=== PATIENT | male | born 1945 | race Caucasian/White ===

== ENCOUNTER 2023-02-23 14:56 | Observation (INO) | payer OTHER, SELFPAY ==
[~2023-02-23] VITALS: Ht 180.3 cm; Wt 85.1 kg
[2023-02-23 16:50] VITALS: BP 179/70; TEMP 97.7; O2SAT 98
[2023-02-23] MEDS ORDERED: MAALOX 30 ML SUSP *UDC PO PRN (17:15)
[2023-02-23] MEDS ORDERED: MOM 30ML SUSPENSION UDC PO PRN (17:15)
[2023-02-23] MEDS ORDERED: ACETAMINOPHEN TAB 650MG DOSE (2X325MG) PO PRN (17:15)
[2023-02-23 17:52] LABS: BASO % 0.5 % (0.0-1.0); EOS # 0.1 10^3/uL (0.0-0.5); EOS % 1.4 % (0.0-3.0); HEMATOCRIT 32.5 % (42.0-52.0); HEMOGLOBIN 9.6 g/dl (13.5-17.5); LYMPH # 1.4 10^3/uL (1.5-5.0); LYMPH % 21.2 % (24.0-44.0); MEAN CORPUSCULAR HEMOGLOBIN 22.1 pg (27.0-33.0); MEAN CORPUSCULAR HGB CONC 29.5 g/dl (32.0-36.5); MEAN CORPUSCULAR VOLUME 74.7 fl (80.0-96.0); MONO # 0.7 10^3/uL (0.0-0.8); MONO % 10.4 % (2.0-8.0); NEUTROPHILS # 4.4 10^3/uL (1.5-8.5); NEUTROPHILS % 66.2 % (36.0-66.0); PLATELET COUNT, AUTOMATED 201 10^3/uL (150-450); RED BLOOD COUNT 4.35 10^6/uL (4.30-6.10); WHITE BLOOD COUNT 6.7 10^3/uL (4.0-10.0)
[2023-02-23] MEDS ORDERED: ALBUTEROL SULFATE 2.5MG/0.5ML INH NEB SOLN NEB PRN ×2 (18:00)
[2023-02-23] MEDS ORDERED: ROSU20TA61 PO (18:12)
[2023-02-23] MEDS ORDERED: METO1TAB7 PO (18:12)
[2023-02-23] MEDS ORDERED: AMIO200T37 PO (18:12)
[2023-02-23] MEDS ORDERED: FERR325T3 PO (18:12)
[2023-02-23] MEDS ORDERED: TAMS1CAP17 PO (18:12)
[2023-02-23] MEDS ORDERED: THERTAB68 PO (18:12)
[2023-02-23] MEDS ORDERED: ALBU8.5H INH (18:12)
[2023-02-23] MEDS ORDERED: CLOP75TA2 PO (18:12)
[2023-02-23] MEDS ORDERED: DILT30TA PO (18:12)
[2023-02-23] MEDS ORDERED: ELIQ5TAB PO (18:12)
[2023-02-23] MEDS ORDERED: LISI5TAB11 PO (18:12)
[2023-02-23] MEDS ORDERED: HOME MED LIST COMPLETE! XX SCH (18:15)
[2023-02-23 18:17] LABS: BLOOD UREA NITROGEN 32 MG/DL (9-23); CALCIUM LEVEL 8.5 MG/DL (8.3-10.6); CARBON DIOXIDE LEVEL 27 MMOL/L (20-31); CHLORIDE LEVEL 111 MMOL/L (98-107); CREATININE FOR GFR 1.33 MG/DL (0.70-1.30); GLOMERULAR FILTRATION RATE 55.5 (>42); GLUCOSE, FASTING 94 MG/DL (74-106); IRON (FE) 13 UG/DL (65-175); MAGNESIUM LEVEL 2.3 MG/DL (1.8-2.4); PERCENT SATURATION 5.7 % (19.7-50.0); POTASSIUM SERUM 5.3 MMOL/L (3.5-5.1); SODIUM LEVEL 146 MMOL/L (136-145); TOTAL IRON BINDING CAPACITY 228 UG/DL (250-425)
[2023-02-23 18:21] LABS: FERRITIN 218.7 NG/ML (10.5-307.3)
[2023-02-23 18:22] LABS: FOLATE > 24.0 NG/ML (>5.4); VITAMIN B12 LEVEL 784 PG/ML (211-911)
[2023-02-23] MEDS ORDERED: SOD POLYSTYRENE SULFONATE SUSP 15GM 60ML UD PO ONE (18:45)
[2023-02-23] MEDS: NS 1,000 ML IV SCH (19:02)
[2023-02-23 19:14] VITALS: BP 149/86; TEMP 97.4; O2SAT 98
[2023-02-23] MEDS: ALBUTEROL SULFATE 2.5MG/0.5ML INH NEB SOLN NEB SCH (19:23)
[2023-02-23 19:33] LABS: INR 1.83; PROTHROMBIN TIME 20.7 SECONDS (12.5-14.5)
[2023-02-23 19:34] LABS: PARTIAL THROMBOPLASTIN TIME 36.1 SECONDS (24.8-34.2)
[2023-02-23] MEDS: FERROUS SULFATE 325MG TAB PO SCH (20:46)
[2023-02-23] MEDS: TAMSULOSIN 0.4 MG CAP PO SCH (20:46)
[2023-02-23] MEDS: DOCUSATE SODIUM 100MG CAPSULE PO SCH (20:47)
[2023-02-23] MEDS ORDERED: LIDOCAINE 2% JELLY 6ML SYRINGE TOP PRN (23:05)
[2023-02-23 23:15] VITALS: BP 153/66; TEMP 97.6; O2SAT 93
[2023-02-23] MEDS ORDERED: RAMELTEON 8 MG TAB (ROZEREM) PO ONE (23:15)
[2023-02-24] VITALS (14 sets, daily range): BP systolic 116–160; BP diastolic 55–88; TEMP 96.7–97.9; O2SAT 90–99
[2023-02-24 06:18] LABS: BASO % 0.4 % (0.0-1.0); EOS # 0.1 10^3/uL (0.0-0.5); EOS % 1.8 % (0.0-3.0); HEMATOCRIT 28.9 % (42.0-52.0); HEMOGLOBIN 8.5 g/dl (13.5-17.5); LYMPH % 20.2 % (24.0-44.0); MEAN CORPUSCULAR HEMOGLOBIN 22.4 pg (27.0-33.0); MEAN CORPUSCULAR HGB CONC 29.4 g/dl (32.0-36.5); MEAN CORPUSCULAR VOLUME 76.1 fl (80.0-96.0); MONO # 0.6 10^3/uL (0.0-0.8); MONO % 11.1 % (2.0-8.0); NEUTROPHILS # 3.3 10^3/uL (1.5-8.5); NEUTROPHILS % 66.3 % (36.0-66.0); PLATELET COUNT, AUTOMATED 174 10^3/uL (150-450); WHITE BLOOD COUNT 4.9 10^3/uL (4.0-10.0)
[2023-02-24 06:52] LABS: BLOOD UREA NITROGEN 28 MG/DL (9-23); CALCIUM LEVEL 7.7 MG/DL (8.3-10.6); CARBON DIOXIDE LEVEL 26 MMOL/L (20-31); CHLORIDE LEVEL 109 MMOL/L (98-107); CREATININE FOR GFR 1.21 MG/DL (0.70-1.30); GLOMERULAR FILTRATION RATE > 60.0 (>42); GLUCOSE, FASTING 87 MG/DL (74-106); MAGNESIUM LEVEL 2.2 MG/DL (1.8-2.4); POTASSIUM SERUM 4.4 MMOL/L (3.5-5.1); SODIUM LEVEL 143 MMOL/L (136-145)
[2023-02-24] MEDS: ALBUTEROL SULFATE 2.5MG/0.5ML INH NEB SOLN NEB SCH ×4 (07:42→19:42)
[2023-02-24] MEDS: dilTIAZem 30 MG TAB PO SCH (09:00)
[2023-02-24] MEDS: METOPROLOL SUCC (TopROL XL) 50MG **XL** TAB PO SCH (09:00)
[2023-02-24] MEDS ORDERED: LIDOCAINE 2% 100MG/5ML SDV (FOR ANES.) As Ordered ONE (09:18)
[2023-02-24] MEDS ORDERED: propofoL 200 MG/20 ML VIAL As Ordered ONE (09:18)
[2023-02-24] MEDS ORDERED: MIDAZOLAM INJ 2MG/2ML VIAL As Ordered ONE (09:18)
[2023-02-24] MEDS ORDERED: fentaNYL 100 MCG/2 ML INJECTION As Ordered ONE (09:19)
[2023-02-24] MEDS ORDERED: LIDOCAINE 2% 5ML JELLY UROJET As Ordered ONE (09:49)
[2023-02-24] MEDS ORDERED: ceFAZolin 1GM VIAL As Ordered ONE (10:51)
[2023-02-24] MEDS ORDERED: ONDANSETRON 4MG 2ML VIAL As Ordered ONE ×2 (11:00→12:19)
[2023-02-24] MEDS ORDERED: LR 1,000 ML IV SCH (11:25)
[2023-02-24] MEDS ORDERED: HYDROMORPHONE HCL 0.5 MG/ 0.5 ML SYRINGE IV PRN (11:25)
[2023-02-24] MEDS ORDERED: fentaNYL 100 MCG/2 ML INJECTION IV PRN (11:25)
[2023-02-24] MEDS ORDERED: oxyCODONE 5MG TAB PO PRN (11:25)
[2023-02-24] MEDS ORDERED: ONDANSETRON 4MG 2ML VIAL IV PRN (11:25)
[2023-02-24] MEDS ORDERED: KETOROLAC 60MG 2ML VIAL As Ordered ONE (12:19)
[2023-02-24] MEDS: FERROUS SULFATE 325MG TAB PO SCH ×2 (12:28→20:21)
[2023-02-24] MEDS: DOCUSATE SODIUM 100MG CAPSULE PO SCH ×2 (12:29→20:21)
[2023-02-24] MEDS: ROSUVASTATIN 10 MG TAB (CRESTOR) PO SCH (12:29)
[2023-02-24] MEDS: MULTIVITAMINS/MINERALS THERAP 1 TAB PO SCH (12:30)
[2023-02-24] MEDS: AMIODARONE 200 MG TAB (PACERONE) PO SCH (12:34)
[2023-02-24 12:39] LABS: HEMATOCRIT 28.1 % (42.0-52.0); HEMOGLOBIN 8.4 g/dl (13.5-17.5)
[2023-02-24] MEDS: NS 1,000 ML IV SCH (12:57)
[2023-02-24] MEDS ORDERED: cefTRIAXone SOD 1GM VIAL IM SCH (15:00)
[2023-02-24] MEDS ORDERED: ceFAZolin SOD 1 GM in D5W MINI-BAG PLUS 50 ML IV SCH (16:00)
[2023-02-24] MEDS: cefTRIAXone SOD 1 GM in D5W MINI-BAG PLUS 50 ML IV SCH (16:44)
[2023-02-24 18:37] LABS: HEMATOCRIT 32.8 % (42.0-52.0); HEMOGLOBIN 9.9 g/dl (13.5-17.5)
[2023-02-24] MEDS: TAMSULOSIN 0.4 MG CAP PO SCH (20:20)
[2023-02-24 20:29] LABS: APPEARANCE, URINE CLOUDY (CLEAR); BACTERIA, URINE AUTO NEGATIVE (NEGATIVE); BILIRUBIN, URINE AUTO NEGATIVE (NEGATIVE); BLOOD, URINE BLOOD 3+ (NEGATIVE); COLOR, URINE AMBER (YELLOW); GLUCOSE, URINE (UA) AUTO NEGATIVE (NEGATIVE); KETONE, URINE AUTO TRACE mg/dL (NEGATIVE); LEUKOCYTE ESTERASE, URINE AUTO 2+ (NEGATIVE); MUCUS, URINE SMALL (NEGATIVE); NITRITE, URINE AUTO NEGATIVE (NEGATIVE); PROTEIN, URINE AUTO 2+ mg/dL (NEGATIVE); RBC, URINE AUTO 72 /HPF (0-3); SPECIFIC GRAVITY URINE AUTO 1.018 (1.002-1.035); SQUAMOUS EPITHELIAL CELL UR AU 0 /HPF (0-6); UROBILINOGEN, URINE AUTO 0.2 mg/dL (0.0-2.0); WBC, URINE AUTO 38 /HPF (0-3)
[2023-02-25 03:00] VITALS: BP 157/67; TEMP 98; O2SAT 98
[2023-02-25 06:29] LABS: HEMATOCRIT 30.4 % (42.0-52.0); HEMOGLOBIN 9.3 g/dl (13.5-17.5); LYMPH # 0.5 10^3/uL (1.5-5.0); LYMPH % 5.5 % (24.0-44.0); MEAN CORPUSCULAR HEMOGLOBIN 23.4 pg (27.0-33.0); MEAN CORPUSCULAR HGB CONC 30.6 g/dl (32.0-36.5); MEAN CORPUSCULAR VOLUME 76.4 fl (80.0-96.0); MONO # 0.5 10^3/uL (0.0-0.8); MONO % 5.4 % (2.0-8.0); NEUTROPHILS # 7.5 10^3/uL (1.5-8.5); NEUTROPHILS % 88.6 % (36.0-66.0); PLATELET COUNT, AUTOMATED 177 10^3/uL (150-450); RED BLOOD COUNT 3.98 10^6/uL (4.30-6.10); WHITE BLOOD COUNT 8.5 10^3/uL (4.0-10.0)
[2023-02-25 06:54] LABS: CALCIUM LEVEL 8.1 MG/DL (8.3-10.6); CREATININE FOR GFR 1.35 MG/DL (0.70-1.30); GLOMERULAR FILTRATION RATE 54.6 (>42); MAGNESIUM LEVEL 2.3 MG/DL (1.8-2.4); POTASSIUM SERUM 4.9 MMOL/L (3.5-5.1)
[2023-02-25 07:55] VITALS: BP 157/70; TEMP 97.5; O2SAT 97
[2023-02-25] MEDS: ALBUTEROL SULFATE 2.5MG/0.5ML INH NEB SOLN NEB SCH ×3 (08:00→16:00)
[2023-02-25] MEDS: MULTIVITAMINS/MINERALS THERAP 1 TAB PO SCH (08:08)
[2023-02-25] MEDS: ROSUVASTATIN 10 MG TAB (CRESTOR) PO SCH (08:08)
[2023-02-25] MEDS: DOCUSATE SODIUM 100MG CAPSULE PO SCH (08:08)
[2023-02-25] MEDS: FERROUS SULFATE 325MG TAB PO SCH (08:08)
[2023-02-25 08:09] VITALS: BP 142/80
[2023-02-25] MEDS: METOPROLOL SUCC (TopROL XL) 50MG **XL** TAB PO SCH (08:09)
[2023-02-25] MEDS: dilTIAZem 30 MG TAB PO SCH (08:09)
[2023-02-25] MEDS: AMIODARONE 200 MG TAB (PACERONE) PO SCH (08:12)
[2023-02-25] MEDS ORDERED: ASPIRIN 81MG ENTERIC TABLET PO SCH (09:00)
[2023-02-25] MEDS ORDERED: METHENAMINE HIPPURATE 1GM TABLET PO SCH (09:00)
[2023-02-25] MEDS ORDERED: ASPI81TAEC PO (11:14)
[2023-02-25] MEDS ORDERED: METH-855 PO (11:14)
[2023-02-25] MEDS ORDERED: ELIQ5TAB PO (11:14)
[2023-02-25] MEDS ORDERED: CEFD300C42 PO (11:14)
[2023-02-25 12:00] VITALS: BP 154/70; TEMP 97.4; O2SAT 98
[2023-02-25 15:17] VITALS: BP 145/64; TEMP 97.4; O2SAT 100
[2023-02-25] MEDS: cefTRIAXone SOD 1 GM in D5W MINI-BAG PLUS 50 ML IV SCH (17:15)
== END 2023-02-25 17:53 | disposition home or self-care (01) ==
LOC: M PCU 16:47
PROVIDERS: ADMIT Internal Medicine; ATTEND Internal Medicine
DX: N30.91 Cystitis, unspecified with hematuria (principal); I10 Essential (primary) hypertension; I48.91 Unspecified atrial fibrillation; E78.5 Hyperlipidemia, unspecified; F17.218 Nicotine dependence, cigarettes, with other nicotine-induced disorders; Z79.01 Long term (current) use of anticoagulants; Z79.02 Long term (current) use of antithrombotics/antiplatelets; Z85.46 Personal history of malignant neoplasm of prostate; J45.909 Unspecified asthma, uncomplicated; Z79.51 Long term (current) use of inhaled steroids; Z79.899 Other long term (current) drug therapy
CPT/HCPCS: 36415; 52001; 52224; 71045; 74176; 80048; 81001; 82607; 82728; 82746; 83550; 83605; 83735; 84466; 85014; 85018; 85025; 85046; 85610; 85730; 86850; 86900; 86901; 86920; 87086; 88305; 93005; 94640; 96361; 96365; 96366; 97116; 97161; G0103; G0378; J0690; J0696; J1100; J1885; J2250; J2405; J3010; P9016